=== PATIENT | male | born 1960 | race Caucasian/White ===

== ENCOUNTER 2019-12-30 08:25 | Day surgery (SDC) | payer BC, SELFPAY ==
[2019-12-30 08:37] VITALS: BMI 28.2
[2019-12-30 08:42] VITALS: BP 165/83; PULSE 86; RESP 18; TEMP 36.8; O2SAT 98
[2019-12-30] MEDS: sodium chloride 0.9% 1,000 ML 30 ML IV (08:54)
--- NOTE | 2019-12-30 09:16 | ANES.PREANE2 ---
Pre-Anesthetic Assessment Pre-Anesthetic Assessment: Height/Weight: Height 1.83 m Weight 94.347 kg Temp Pulse Resp BP Pulse Ox 98.2 F 86 18 165/83 98 12/30/19 08:42 12/30/19 08:42 12/30/19 08:42 12/30/19 08:42 12/30/19 08:42 Proposed Procedure: Operation Date: 12/30/19 09:45 Proposed Procedures p Colonoscopy 54355 Z12.11(Not Applicable) - Gerber Aaron MD Was Beta Eric taken within 24 hours: N/A Last intake: Intake Last Liquid Date 12/29/19 Last Liquid Time 21:00 Last Solid Date 12/28/19 Last Solid Time 18:00 Social: Social History: Tobacco Packs per day: 1/2 Pack years: 31 Exam: Pre-Anes Outpt Exam: alert and oriented x 3 Airway: Submandibular: WNL Cervical ROM: WNL MP: 1 Anesthetic Plan: ASA status: 2 Anesthesia: MAC Meds/Allergies Current Medications: Current Medications Generic Name Dose Route Start Last Admin Trade Name Freq PRN Reason Stop Dose Admin Sodium Chloride 1,000 mls @ 30 ml s/hr 12/30/19 08:30 12/30/19 08:54 Sodium Chloride 0.9% IV 12/31/19 08:29 30 mls/hr .Q24H MARCOS Administration Data Anesthesia Cardiac Studies: No Data to Display
--- NOTE | 2019-12-30 10:08 | W.PM.OPSFHP ---
Same Day Surgery H&P Indication for Procedure/HPI DATE OF PROCEDURE: December 30, 2019 CHIEF COMPLAINT/INDICATIONFOR SURGICAL PROCEDURE: screening PREOP DIAGNOSIS: Screening PLANNED PROCEDRUE: Operation Date: 12/30/19 09:45 Proposed Procedures p Colonoscopy 50515 Z12.11(Not Applicable) - Gerber Aaron MD Medications/Allergies* Home Medications Medication Instructions Recorded Confirmed Type hydrochlorothiazide 25 mg tablet 25 mg PO DAILY 12/16/19 12/30/19 History lisinopril 20 mg tablet 20 mg PO DAILY 12/16/19 12/30/19 History garlic 1,000 mg PO DAILY 12/30/19 12/30/19 History Allergies/Adverse Reactions Allergy/AdvReac Type Severity Reaction Status Date / Time No Known Allergies Allergy Unverified 12/16/19 16:38 Current Medications: Generic Name Dose Route Start Last Admin Trade Name Freq PRN Reason Stop Dose Admin Sodium Chloride 1,000 mls @ 30 mls/hr 12/30/19 08:30 12/30/19 08:54 Sodium Chloride 0.9% IV 12/31/19 08:29 30 mls/hr .Q24H MARCOS Administration Pertinent History/Comorbid Conditions* Medical History (Updated 12/30/19 @ 10:02 by Gerber Aaron MD) HTN (hypertension), benign Pertinent Exam Findings alert, oriented x 3, regular rate & rhythm and operative site marked Recommendations Surgery/Procedure today Coding Level of Care Code Acute [employer]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
[2019-12-30 10:24] VITALS: BP 114/69; PULSE 79; RESP 16; TEMP 36.4; O2SAT 93
--- NOTE | 2019-12-30 10:28 | ANE.PACU2 ---
Inpatient post-anesthesia follow up: Airway intact: Yes Vital signs: Temperature 97.5 F Pulse Rate 79 Respiratory Rate 16 Blood Pressure 114/69 Pulse Oximetry 93 Oxygen Delivery Me thod Nasal Cannula Oxygen Flow Rate 4 Fraction of Inspir ed Oxygen Hydration adequate: Yes Nausea and vomiting: No Pain level: 0 Mental status: Baseline
[2019-12-30 10:32] VITALS: BP 109/76; PULSE 81; RESP 18; O2SAT 95
== END 2019-12-30 10:55 | disposition home or self-care (01) ==
PROVIDERS: PCP Family Medicine; Visit Provider Surgery
PROC: 0DJD8ZZ Inspection of Lower Intestinal Tract, Via Natural or Artificial Opening Endoscopic (ICD-10-PCS; CPT 45378; principal; 2019-12-30 09:45)
DX: Z12.11 Encounter for screening for malignant neoplasm of colon (principal); K57.30 Diverticulosis of large intestine without perforation or abscess without bleeding; K64.8 Other hemorrhoids; K63.5 Polyp of colon; F17.210 Nicotine dependence, cigarettes, uncomplicated; I10 Essential (primary) hypertension
CPT/HCPCS: 12345; 45380; 88305; J2704; J7030